=== PATIENT | male | born 1965 | race Caucasian/White ===

== ENCOUNTER 2020-05-06 11:51 | Emergency (ER) | payer OTHER ==
[2020-05-06] MEDS ORDERED: NORCO 5-325 TA1 EACH PO (15:00)
[2020-05-07] MEDS ORDERED: PERCOCET 5-3251 EACH PO (16:56)
[2020-05-12] MEDS ORDERED: PERCOCET 5-3251 EACH PO (10:48)
== END 2020-05-06 15:15 | disposition home or self-care (01) ==
LOC: FER 11:51
DX: S82.62XA Displaced fracture of lateral malleolus of left fibula, initial encounter for closed fracture (principal); S60.511A Abrasion of right hand, initial encounter; R55 Syncope and collapse; W20.8XXA Other cause of strike by thrown, projected or falling object, initial encounter; Y93.H2 Activity, gardening and landscaping; Y92.009 Unspecified place in unspecified non-institutional (private) residence as the place of occurrence of the external cause
CPT/HCPCS: 70450; 72125; 73600

== ENCOUNTER → 2020-05-12 | Day surgery (SDC) | payer OTHER ==
[~2020-05-12] MED LIST: NORCO 5-325 TA1 EACH PO; PERCOCET 5-3251 EACH PO
[2020-05-12 11:08] LABS: HCT 49.6 % (42.0-52.0); HGB 16.5 g/dl (13.2-18.0); MCH 31.9 pg (25.0-31.0); MCHC 33.3 g/dL (32.0-36.0); MCV 95.9 fL (78.0-100.0); MPV 9.9 fL (6.0-9.5); RBC 5.17 M/uL (4.70-6.00); RDW 12.9 % (11.5-14.0); WBC 7.2 K/uL (4.0-10.5)
[2020-05-12 11:22] LABS: ALBUMIN 3.6 g/dL (3.4-5.0); BILIRUBIN - TOTAL 0.6 mg/dL (0.2-1.0); BUN/CREAT RATIO (CALC) 10.7 RATIO; CREATININE 0.84 mg/dL (0.67-1.17); GLOBULIN (CALCULATION) 3.7 g/dL; POTASSIUM 4.2 mmol/L (3.5-5.1); TOTAL PROTEIN 7.3 g/dL (6.4-8.2)
== END | disposition home or self-care (01) ==
LOC: FAS 08:57
PROVIDERS: Orthopaedic Surgery
DX: S82.832A Other fracture of upper and lower end of left fibula, initial encounter for closed fracture (principal); Z87.891 Personal history of nicotine dependence; Z88.0 Allergy status to penicillin; Z98.890 Other specified postprocedural states; W14.XXXA Fall from tree, initial encounter; Z20.822 Contact with and (suspected) exposure to COVID-19
CPT/HCPCS: 36415; 71045; 73600; 76000; 80053; C1713; J0735; J1100; J1956; J2250; J2795; J3010; J7120